=== PATIENT | female | born 1995 | race Two or more races ===

== ENCOUNTER → 2024-10-27 08:35 | Outpatient (REF) | payer OTHER, SELFPAY | LOC: WDC 08:35 | DX: N64.52 Nipple discharge (principal) | CPT/HCPCS: 76642 ==

== ENCOUNTER → 2024-11-17 08:41 | Outpatient (REF) | payer OTHER, SELFPAY | LOC: WDC 08:41 | DX: N61.1 Abscess of the breast and nipple (principal); R92.8 Other abnormal and inconclusive findings on diagnostic imaging of breast | CPT/HCPCS: 76642 ==